=== PATIENT | female | born 1985 | race Caucasian/White ===

== ENCOUNTER 2016-05-18 11:19 | Emergency (ER) | payer OTHER ==
[~2016-05-18] VITALS: Ht 154.9 cm; Wt 60.0 kg
[2016-05-18 11:21] VITALS: BP 125/71; PULSE 67; RESP 16; TEMP 98; O2SAT 98
[2016-05-18] MEDS ORDERED: BIRTH CONTROL PO (12:38)
[2016-05-18] MEDS ORDERED: ROBA500T PO (12:48)
[2016-05-18] MEDS ORDERED: IBUP800T23 PO (12:48)
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
[2016-05-18] MEDS ORDERED: IBUPROFEN 800 MG TAB PO ONE (13:00)
[2016-05-18] MEDS ORDERED: METHOCARBAMOL 500 MG TAB PO ONE (13:00)
== END 2016-05-18 13:11 | disposition home or self-care (01) ==
LOC: NEPB 11:19
DX: S46.819A Strain of other muscles, fascia and tendons at shoulder and upper arm level, unspecified arm, initial encounter (principal); M54.2 Cervicalgia; V43.62XA Car passenger injured in collision with other type car in traffic accident, initial encounter; Y99.8 Other external cause status
CPT/HCPCS: 99283

== ENCOUNTER 2017-03-17 05:00 | Emergency (ER) | payer BC ==
[~2017-03-17] VITALS: Ht 154.9 cm; Wt 57.0 kg
[~2017-03-17 05:00] MED LIST: BIRTH CONTROL PO; IBUP1TAB7 PO; ROBA500T PO
[2017-03-17 05:02] VITALS: BP 118/61; PULSE 83; RESP 16; TEMP 98.1; O2SAT 100
[2017-03-17] MEDS ORDERED: FEXO15TA PO (05:27)
[2017-03-17] MEDS ORDERED: PRED20 PO (05:27)
--- NOTE | 2017-03-17 05:30 | PD ---
HPI Chief Complaint: Skin Problem Time Seen by Provider: 05:25 Travel History International Travel<30 days: No Contact w/Intl Traveler<30days: No Traveled to known affect area: No History of Present Illness HPI 31-year-old female presents to emergency Department with complaints of a pruritic rash which she has had now for over 1-2 weeks. She was seen by her primary care doctor over a week ago was given a prescription for topical steroid cream. She was told that she had eczema. Patient denies any history of skin problems in the past. She cannot recall any new changes in her environment, skin care products, dietary changes or recent illness. Patient has no alleviating factors. No exacerbating factors. PFSH Past Medical History Medical History: Denies Significant Hx Tetanus Vaccination: < 5 Years ?: Not Past Surgical History Surgical History: No Previous Surgery Social History Alcohol Use: No Tobacco Use: No Substance Use: No Allergies-Medications (Allergen,Severity, Reaction): Coded Allergies: No Known Allergies (Unverified Adverse Reaction, Unknown, 03/17/17) Reported Meds & Prescriptions Reported Meds & Active Scripts Active Prednisone 20 Mg Tab 20 Mg PO BID 7 Days Shelly Allergy (Fexofenadine HCl) 180 Mg Tab 180 Mg PO DAILY Review of Systems General / Constitutional: No: Fever Eyes: No: Visual changes HENT: No: Headaches Cardiovascular: No: Chest Pain or Discomfort Respiratory: No: Shortness of Breath Gastrointestinal: No: Abdominal Pain Genitourinary: No: Dysuria Musculoskeletal: No: Pain Skin: No Rash Neurologic: No: Weakness Psychiatric: No: Depression Endocrine: No: Polydipsia Hematologic/Lymphatic: No: Easy Bruising Physical Exam Narrative GENERAL: This is a well-nourished, well-developed patient, in no apparent distress. SKIN: Patient has a fine excoriated papular rash on her arms, legs buttocks. The central torso and trunk appear to be clear., ecchymoses or lesions. Warm and dry. HEAD: Atraumatic. Normocephalic. EYES: PERRL, EOMI, no discharge or injection. No scleral icterus. EARS: Clear NOSE: Nasal turbinates appear normal. THROAT: Mucosa pink and moist. Airway patent. NECK: Trachea midline. supple, moves head freely. LUNGS: Clear to auscultation. CV: Regular in rhythm. ABDOMEN: Soft nontender. EXT: No clubbing cyanosis or edema. Data Data Last Documented VS Vital Signs Date Time Temp Pulse Resp B/P (MAP) Pulse Ox O2 Delivery O2 Flow Rate FiO2 03/17/17 05:02 98.1 83 16 118/61 (80) 100 Orders Orders Ed Discharge Order (03/17/17 05:25) MDM Medical Decision Making Medical Screen Exam Complete: Yes Emergency Medical Condition: Yes Medical Record Reviewed: Yes Differential Diagnosis MDM: High Differential diagnoses: Abscess, folliculitis, cellulitis, lymphangitis, abrasion, contact dermatitis Narrative Course Patient appears to have a contact dermatitis. Diagnosis Primary Impression: Contact dermatitis Qualified Codes: L25.9 - Unspecified contact dermatitis, unspecified cause Patient Instructions: General Instructions Additional Instructions: Rest. Perform a diary of all exposures including environment, food, or skin care products over the last 2 weeks. Prednisone and Shelly. Aveeno bath. Dove soap. Follow-up with your doctor in 1 week. Return to the ER for emergencies. Med/Other Pt SpecificInfo: Prescription(s) given Scripts Prednisone (Prednisone) 20 Mg Tab 20 MG PO BID for 7 Days, #14 TAB 0 Refills Prov: Gibran Denton MD 03/17/17 Fexofenadine (Shelly Allergy) 180 Mg Tab 180 MG PO DAILY for Allergy Management, #30 TAB 0 Refills Prov: Gibran Denton MD 03/17/17 Disposition: 01 DISCHARGE HOME Condition: Stable Alejandro Oh Mar 17, 2017 05:30
== END 2017-03-17 05:39 | disposition home or self-care (01) ==
LOC: NEPD 05:00
DX: L25.9 Unspecified contact dermatitis, unspecified cause (principal)
CPT/HCPCS: 99284